=== PATIENT | male | born 1965 | race Caucasian/White ===

== ENCOUNTER 2017-06-11 00:05 | Inpatient (IN) | payer MEDICAID ==
[~2017-06-11] VITALS: Ht 175.3 cm; Wt 86.2 kg
--- NOTE | 2017-06-11 00:29 | NUR ---
Pt unable to recall names and doses of medications at this time.
[2017-06-11] MEDS ORDERED: VANCOMYCIN IV 1,000 MG in IV DEXTROSE 5% 250 ML IV ONE (00:30)
[2017-06-11] MEDS ORDERED: GENTAMICIN SULFATE INJ 80 MG in IV DEXTROSE 5% 100 ML IV ONE (00:30)
[2017-06-11] MEDS ORDERED: CLINDAMYCIN PHOSPHATE IV 600 MG in IV DEXTROSE 5% 100 ML IV ONE (00:30)
[2017-06-11] MEDS ORDERED: IV NORMAL SALINE 1000 ML BAG IV ONE (00:30)
[2017-06-11] MEDS ORDERED: CLINDAMYCIN PHOSPHATE 600 MG/4 ML VIAL ONE ×2 (00:48→02:20)
[2017-06-11 00:53] LABS: CREATININE 1.1 mg/dL (0.6-1.3); POTASSIUM 3.6 mmol/L (3.5-5.1)
[2017-06-11 00:55] LABS: *BILIRUBIN,URIN NEGATIVE (NEGATIVE); *BLOOD, URINE Trace-intact (NEGATIVE); *CLARITY,URINE CLEAR (CLEAR); *COLOR,URINE YELLOW (YELLOW); *KETONES,URINE NEGATIVE (NEGATIVE); *PROTEIN,URINE NEGATIVE (NEGATIVE); *UROBILINOGEN,URINE 0.2 E.U./dl (NORMAL); LEUKOCYTE ESTERASE ,URINE NEGATIVE (NEGATIVE); NITRITE, URINE NEGATIVE (NEGATIVE); UGLUCOSE NEGATIVE (NEGATIVE)
[2017-06-11 00:56] LABS: BASOPHILS % (AUTO) 0.1 % (0.0-2.0); EOSINOPHILS # (AUTO) 0.1 K/uL (0.0-0.7); EOSINOPHILS % (AUTO) 0.5 % (0.0-7.0); HEMATOCRIT 42.6 % (36.7-47.1); HEMOGLOBIN 14.5 g/dL (12.5-16.3); LYMPHOCYTES # (AUTO) 1.1 K/uL (20.0-40.0); LYMPHOCYTES % (AUTO) 7.4 % (20.5-51.5); MEAN CORPUSCULAR HEMOGLOBIN 31.5 uug (23.8-33.4); MEAN CORPUSCULAR HGB CONC 34 g/dL (32.5-36.3); MEAN CORPUSCULAR VOLUME 92.5 fL (73.0-96.2); MONOCYTES # (AUTO) 0.7 K/uL (2.0-10.0); MONOCYTES % (AUTO) 4.6 % (0.0-11.0); NEUTROPHILS # (AUTO) 12.7 K/uL (1.8-8.9); NEUTROPHILS % (AUTO) 87.4 % (38.5-71.5); PLATELET COUNT (AUTO) 221 K/uL (152-348); WHITE BLOOD COUNT (AUTO) 14.5 K/uL (3.6-10.2)
[2017-06-11 00:58] LABS: BILIRUBIN,DIRECT 0.1 mg/dL (0.0-0.2); BILIRUBIN,TOTAL 0.5 mg/dL (0.2-1.0); TOTAL PROTEIN, SERUM 7.1 g/dL (6.4-8.2)
[2017-06-11 01:06] LABS: BACTERIA,URINE NONE SEEN /HPF (NONE SEEN); MUCUS,URINE MODERATE /LPF (0-FEW); SQUAMOUS EPITHELIAL CELL,UR FEW /HPF (NONE SEEN); WBC,URINE 0-3 /HPF (0-3)
[2017-06-11] MEDS ORDERED: VANCOMYCIN IV 200 ML ONE (01:18)
--- NOTE | 2017-06-11 01:24 | NUR ---
PT IN BED. VISITOR AT BEDSIDE. X-RAY BEING COMPLETED AT THIS TIME.
[2017-06-11] MEDS ORDERED: ACETAMINOPHEN 325 MG TABLET PO ONE (01:45)
[2017-06-11] MEDS ORDERED: ACETAMINOPHEN 325 MG TABLET ONE (02:00)
--- NOTE | 2017-06-11 02:23 | NUR ---
Call placed to PSY[facility], Wyatt SCHNEIDER) speaking with [facility].
[2017-06-11] MEDS ORDERED: GENTAMICIN SULFATE 80 MG/2 ML VIAL ONE (02:24)
[2017-06-11] MEDS ORDERED: MORPHINE SULFATE 4 MG/1 ML DISP.SYRIN IV PRN (02:30)
[2017-06-11] MEDS ORDERED: HYDROCODONE/APAP 5-325MG TABLET PO PRN (02:30)
[2017-06-11] MEDS ORDERED: Z GUARD REMEDY PASTE 57 GM TUBE TOP PRN (02:30)
[2017-06-11] MEDS ORDERED: MAGNESIUM HYDROXIDE 30 ML LIQUID UDC PO PRN (02:30)
[2017-06-11] MEDS ORDERED: ONDANSETRON 4 MG/2 ML VIAL IV PRN (02:30)
[2017-06-11] MEDS ORDERED: METRONIDAZOLE 500 MG/NS 100ML 500 MG in PREMIXED 1 EACH IV SCH (03:00)
--- NOTE | 2017-06-11 03:30 | NUR ---
Pt. admitted to TELE, under care of Wyatt Rudd ([facility]). Belongs List completed
--- NOTE | 2017-06-11 03:30 | NUR ---
RECEIVED PT FROM ER [facility]IA [facility]. PT AWAKE, ALERT , [email or web address] ADMITTED TO TELE. BELONGING LIST DONE. ADMISSION PROCESS AND CARE PLAN INITIATED. NEW ADMISSION. SAFETY AND COMFORT PROVIDED. CALL LIGHT WITHIN REACH. WILL CONTINUE TO MONITOR.
[2017-06-11 03:45] VITALS: BP 95/49
[2017-06-11] MEDS: LEVOFLOXACIN 750MG/D5W 750 MG in PREMIXED 1 EACH IV SCH (04:00)
[2017-06-11] MEDS ORDERED: CLINDAMYCIN PHOSPHATE IV 600 MG in IV DEXTROSE 5% 100 ML IV SCH (06:00)
[2017-06-11] MEDS ORDERED: LEVOFLOXACIN 750MG/D5W 150 ML IV ONE (06:23)
[2017-06-11] MEDS ORDERED: METRONIDAZOLE 500 MG/NS 100ML 100 ML IV ONE (06:23)
[2017-06-11 07:29] VITALS: BP 98/40
--- NOTE | 2017-06-11 08:00 | NUR ---
PT IN BED AWAKE, A&O X4. ADMITTED FOR ELEVATED TEMP, REDNESS TO LEFT LOWER INNER LEG; POSSIBLE SEPSIS DUE TO STAPH AERUS, POSSIBLE CELLULITIS. AFEBRILE. PT IN NO ACUTE DISTRESS NOTED. NO SOB. LEADS IN PLACE. DENIES PAIN AT THIS TIME. LEFT LOWER LEG NOTED WITH REDNESS, WARM AND DRY TO TOUCH. SKIN INTACT. WILL MONITOR FOR ADVERSE CHANGES. ON VANCO, FLAGYL, GENTAMICIN, AND CLEOCIN. NO ASE NOTED AT THIS TIME. BLOOD CX AND URINE CX PENDING. CALL LIGHT WITHIN REACH.
[2017-06-11] MEDS: LACTOBACILLUS RHAMNOSUS GG 1 EACH CAPSULE PO SCH ×2 (08:37→21:44)
[2017-06-11] MEDS ORDERED: EFAV1TAB PO (09:06)
[2017-06-11] MEDS ORDERED: LORA10TA7 PO (09:07)
[2017-06-11] MEDS ORDERED: KETO10DR3 EACHEYE (09:07)
[2017-06-11] MEDS: VANCOMYCIN IV 1 G in PREMIXED 0 EACH IV SCH ×2 (10:05→22:23)
[2017-06-11 10:52] LABS: BASOPHILS % (AUTO) 0.1 % (0.0-2.0); EOSINOPHILS # (AUTO) 0.1 K/uL (0.0-0.7); EOSINOPHILS % (AUTO) 0.3 % (0.0-7.0); HEMATOCRIT 37.7 % (36.7-47.1); HEMOGLOBIN 12.9 g/dL (12.5-16.3); LYMPHOCYTES # (AUTO) 0.6 K/uL (20.0-40.0); LYMPHOCYTES % (AUTO) 3.4 % (20.5-51.5); MEAN CORPUSCULAR HEMOGLOBIN 31.2 uug (23.8-33.4); MEAN CORPUSCULAR HGB CONC 34 g/dL (32.5-36.3); MEAN CORPUSCULAR VOLUME 91.4 fL (73.0-96.2); MONOCYTES # (AUTO) 0.7 K/uL (2.0-10.0); MONOCYTES % (AUTO) 4.1 % (0.0-11.0); NEUTROPHILS # (AUTO) 16.6 K/uL (1.8-8.9); NEUTROPHILS % (AUTO) 92.1 % (38.5-71.5); PLATELET COUNT (AUTO) 184 K/uL (152-348); RED BLOOD CELL COUNT(AUTO) 4.13 MIL/uL (4.06-5.63)
[2017-06-11 10:55] LABS: POTASSIUM 4.4 mmol/L (3.5-5.1)
[2017-06-11 11:07] LABS: BILIRUBIN,TOTAL 0.7 mg/dL (0.2-1.0); MAGNESIUM 1.6 mg/dL (1.8-2.4); PHOSPHOROUS 2.5 mg/dL (2.5-4.9); TOTAL PROTEIN, SERUM 5.7 g/dL (6.4-8.2)
[2017-06-11 11:36] VITALS: BP 100/53
--- NOTE | 2017-06-11 12:40 | NUR ---
Clinical pharmacy note-Vancomycin dosing per pharmacy Subjective: To start Vancomycin dosing on this 52 yo male patient for sepsis (MRSA, per ER MD note) Objective: BUN 17 Scr 1.1 WBC 14.5 Temp 99.2 Ht 175.2 cm Wt 86 kg Assessment/Plan: Will continue start vanco 1gm IVPB q12h for predicted vanco trough level of 15 mcg/ml at steady state. 1st dose due today at 1000. Will draw trough by 4th dose(not ordered yet). Will monitor renal function & will adjust the dose if needed. Will monitor daily.
[2017-06-11] MEDS: METRONIDAZOLE 500 MG/NS 100ML 500 MG in PREMIXED 1 EACH IV SCH ×2 (15:01→21:45)
[2017-06-11 15:56] VITALS: BP 95/46
[2017-06-11] MEDS: ACETAMINOPHEN 325 MG TABLET PO PRN (16:54)
--- NOTE | 2017-06-11 18:02 | NUR ---
PT REMAINS STABLE AT THIS TIME. TELEMETRY D/C'D ORDERED. FAMILY AT BEDSIDE. HOME MEDICATIONS PICKED UP BY PHARMACY FOR VERIFICATION. ADMINISTERED TYLENOL 650MG PO NEEDED FOR C/O 3/10 GENERALIZED MILD PAIN. EFFECTIVE POST 40 MINS AT 0/10. ALL I.V. ANTIBIOTICS ADMINISTERED WITH NO ASE NOTED AT THIS TIME. NO ADVERSE CHANGES NOTED TO REDNESS ON LEFT LOWER LEG.
--- NOTE | 2017-06-11 19:30 | NUR ---
Report received. Patient AAO; no neuro deficits. Able to ambulate to BR to void. NAD noted.
[2017-06-11 21:01] VITALS: BP 98/44
[2017-06-12] MEDS: ACETAMINOPHEN 325 MG TABLET PO PRN ×4 (02:19→18:30)
--- NOTE | 2017-06-12 02:19 | NUR ---
Awake. c/o pain to L leg. Encouraged to have leg elevated on pillow. Patient compliant with care. Medicated with Tylenol for L leg pain per patient's request.
[2017-06-12] MEDS: LEVOFLOXACIN 750MG/D5W 750 MG in PREMIXED 1 EACH IV SCH (03:55)
[2017-06-12 04:00] VITALS: BP 107/58
[2017-06-12] MEDS: METRONIDAZOLE 500 MG/NS 100ML 500 MG in PREMIXED 1 EACH IV SCH ×3 (05:33→21:16)
--- NOTE | 2017-06-12 06:00 | NUR ---
Stable all night; NAD noted. L leg redness unchanged.
[2017-06-12 06:43] LABS: BASOPHILS % (AUTO) 0.1 % (0.0-2.0); EOSINOPHILS # (AUTO) 0.4 K/uL (0.0-0.7); EOSINOPHILS % (AUTO) 3.4 % (0.0-7.0); HEMATOCRIT 39.6 % (36.7-47.1); HEMOGLOBIN 13.5 g/dL (12.5-16.3); LYMPHOCYTES # (AUTO) 1.2 K/uL (20.0-40.0); MEAN CORPUSCULAR HEMOGLOBIN 31.5 uug (23.8-33.4); MEAN CORPUSCULAR HGB CONC 34 g/dL (32.5-36.3); MEAN CORPUSCULAR VOLUME 92.4 fL (73.0-96.2); MONOCYTES # (AUTO) 0.6 K/uL (2.0-10.0); MONOCYTES % (AUTO) 5.1 % (0.0-11.0); NEUTROPHILS # (AUTO) 10.1 K/uL (1.8-8.9); NEUTROPHILS % (AUTO) 81.4 % (38.5-71.5); PLATELET COUNT (AUTO) 179 K/uL (152-348); RED BLOOD CELL COUNT(AUTO) 4.28 MIL/uL (4.06-5.63); WHITE BLOOD COUNT (AUTO) 12.4 K/uL (3.6-10.2)
[2017-06-12 06:52] LABS: CREATININE 0.9 mg/dL (0.6-1.3); POTASSIUM 3.9 mmol/L (3.5-5.1)
[2017-06-12 07:12] LABS: THYROID STIMULATING HORMONE 1.463 mIU/mL (0.358-3.740)
[2017-06-12 07:23] VITALS: BP 102/54
--- NOTE | 2017-06-12 08:00 | NUR ---
PT REMAINS STABLE AT THIS TIME. LEFT LOWER LEG STILL NOTED WITH REDNESS. NO ADVERSE CHANGES. RECEIVING IV ABX ORDERED W/ NO ASE NOTED.
[2017-06-12 08:07] LABS: *BASOS 0 % (Not Estab.); *EOS 0 % (Not Estab.); *HCT 35.9 % (37.5-51.0); *HGB 12.5 g/dL (13.0-17.7); *IMMATURE GRANULOCYTES 0 % (Not Estab.); *LYMPHOCYTES 5 % (Not Estab.); *LYMPHOCYTES ABSOLUTE 0.6 x10E3/uL (0.7-3.1); *MCH 31.9 pg (26.6-33.0); *MCHC 34.8 g/dL (31.5-35.7); *MCV 92 fL (79-97); *MONOCYTES 4 % (Not Estab.); *MONOCYTES ABSOLUTE 0.5 x10E3/uL (0.1-0.9); *NEUTROPHILS 91 % (Not Estab.); *NEUTROPHILS ABSOLUTE 10.9 x10E3/uL (1.4-7.0); *PLT 196 x10E3/uL (150-379); *RBC 3.92 x10E6/uL (4.14-5.80); *RDW 14.4 % (12.3-15.4)
[2017-06-12] MEDS: VANCOMYCIN IV 1 G in PREMIXED 0 EACH IV SCH ×2 (09:06→21:51)
[2017-06-12] MEDS: LACTOBACILLUS RHAMNOSUS GG 1 EACH CAPSULE PO SCH ×2 (09:06→20:46)
[2017-06-12] MEDS ORDERED: NEUTRA PHOS PACKET PO ONE (10:15)
[2017-06-12 11:05] VITALS: BP 102/56
--- NOTE | 2017-06-12 13:30 | NUR ---
RECEIVED CALL FROM LAB RE: PRELIMINARY BLOOD CX RESULT (+) FOR GRAM COCCI PAIRS & CHAINS. NOTIFIED DR. CORDOBA W/ NO NEW ORDERS AT THIS TIME. PT ON REI.
--- NOTE | 2017-06-12 14:14 | NUR ---
Clinical pharmacy note-Vancomycin dosing per pharmacy Subjective: To continue Vancomycin dosing on this 52 yo male patient for sepsis (MRSA, per ER MD note) Objective: BUN 8 Scr 0.9 WBC 12.4 Temp 98.7 Ht 175.2 cm Wt 86 kg trough: pending tonight at 2130 Assessment/Plan: Will continue vanco 1gm IVPB q12h for predicted vanco trough level of 15 mcg/ml at steady state. Trough due tonight at 2130 RN endorsed to hold if Tr >20. Will check level in am and adjust regimen as needed. Will monitor renal function & will adjust the dose if needed. Will monitor daily.
[2017-06-12 15:08] LABS: *HELPER T-LYMPH MARKR(CD4)ABSO 95 (359-1519); *HELPER T-LYNPH MARKER CD4)% 15.8 % (30.8-58.5)
[2017-06-12 15:10] VITALS: BP 100/56
--- NOTE | 2017-06-12 17:48 | NUR ---
PT IN NO ACUTE DISTRESS. Addendum: 06/12/17 at 1841 by TIEN LAZARO RN NOTED WITH 99.0 ORAL TEMP. ADMINISTERED TYLENOL 650MG PRN. ENCOURAGED PO FLUID INTAKE. PT DRINKING PEDIALYTE BROUGHT IN BY FAMILY.
--- NOTE | 2017-06-12 19:30 | NUR ---
Report received. Patient AAO, with family visiting. NAD noted. L leg redness area marked, warm to touch. Pedal pulses palpable. No c/o pain at the moment. Addendum: 06/12/17 at 2018 by RODNEY JARVIS RN Amended: Links added.
[2017-06-12 20:50] VITALS: BP 119/54
[2017-06-12] MEDS ORDERED: LORATADINE 10 MG TABLET PO SCH (21:00)
[2017-06-12] MEDS ORDERED: LORATIDINE 10 MG PO SCH (21:00)
[2017-06-12] MEDS ORDERED: ATRIPLA PO SCH (21:00)
[2017-06-13] MEDS: LEVOFLOXACIN 750MG/D5W 750 MG in PREMIXED 1 EACH IV SCH (03:14)
--- NOTE | 2017-06-13 03:56 | NUR ---
aaox4 ambulatory ad april. admitted for sepsis. on antibiotic therapy. tolerated well. no ill effects noted. needs attended. denies any pain nor any discomfort. will monitor patient. voiding without any difficulty.
[2017-06-13 04:57] VITALS: BP 104/61
[2017-06-13] MEDS: METRONIDAZOLE 500 MG/NS 100ML 500 MG in PREMIXED 1 EACH IV SCH ×2 (05:04→13:25)
[2017-06-13 06:53] LABS: BASOPHILS % (AUTO) 0.2 % (0.0-2.0); EOSINOPHILS # (AUTO) 0.6 K/uL (0.0-0.7); EOSINOPHILS % (AUTO) 7.9 % (0.0-7.0); HEMATOCRIT 40.9 % (36.7-47.1); LYMPHOCYTES % (AUTO) 14.2 % (20.5-51.5); MEAN CORPUSCULAR HEMOGLOBIN 31.5 uug (23.8-33.4); MEAN CORPUSCULAR HGB CONC 34 g/dL (32.5-36.3); MEAN CORPUSCULAR VOLUME 92.2 fL (73.0-96.2); MONOCYTES # (AUTO) 0.6 K/uL (2.0-10.0); MONOCYTES % (AUTO) 8.6 % (0.0-11.0); NEUTROPHILS # (AUTO) 4.8 K/uL (1.8-8.9); NEUTROPHILS % (AUTO) 69.1 % (38.5-71.5); PLATELET COUNT (AUTO) 174 K/uL (152-348); RED BLOOD CELL COUNT(AUTO) 4.43 MIL/uL (4.06-5.63)
[2017-06-13] MEDS: LACTOBACILLUS RHAMNOSUS GG 1 EACH CAPSULE PO SCH (08:41)
[2017-06-13] MEDS: ACETAMINOPHEN 325 MG TABLET PO PRN (08:41)
--- NOTE | 2017-06-13 08:56 | NUR ---
pt seen on rounding. vitals assessed and stable. no signs of fever noted. bp wnl. pt able swallow pills whole. pt given tylenol as requested. left leg cellulitis shows improvement. will continue to monitor.
[2017-06-13] MEDS ORDERED: VANCOMYCIN IV 1,500 MG in IV NORMAL SALINE 500 ML IV SCH (10:00)
[2017-06-13 11:19] VITALS: BP 107/62
[2017-06-13] MEDS ORDERED: LACT1CAP57 PO (11:58)
[2017-06-13] MEDS ORDERED: SULF1TAB48 PO (11:58)
--- NOTE | 2017-06-13 14:53 | NUR ---
Clinical pharmacy note-Vancomycin dosing per pharmacy Subjective: To continue Vancomycin dosing on this 52 yo male patient for sepsis (MRSA, per ER MD note) Objective: BUN 8 Scr 0.9 WBC 7.0 Temp 99.4 Ht 175.2 cm Wt 86 kg trough: 4.7 on 06/12 at 2130 Assessment/Plan: Since trough is under therapeutic range, will increase dose to 1500mg IV every 8hrs(first dose today at 1000) and draw trough by 4th dose(ordered for tomorrow at 0930) for expected trough around 15. Will monitor daily.
[2017-06-13 15:50] VITALS: BP 120/64
[2017-06-13 16:04] VITALS: BP 120/64
--- NOTE | 2017-06-13 16:30 | NUR ---
pt ordered to be discharged. pt vitals stable. pt signed discharge summary and belongings list. pt instructed about plan of care after discharge. is instructed about the medications for infection. pt left with belongings. pt picked up by family member. no signs of acute distress. pictures taken and placed in chart. all original copies sent to family. copies in chart. pt is dicharged at 1600
== END 2017-06-13 14:15 | disposition home or self-care (01) | DRG 720 ==
LOC: ER 00:11 → TELE 02:50 → MED 15:58
PROVIDERS: ADMIT Nurse Practitioner Acute Care; ATTEND Internal Medicine
DX: A41.9 Sepsis, unspecified organism (principal); E83.42 Hypomagnesemia; L03.116 Cellulitis of left lower limb; E83.39 Other disorders of phosphorus metabolism; Z88.0 Allergy status to penicillin; Z86.14 Personal history of Methicillin resistant Staphylococcus aureus infection; E66.8 Other obesity; Z68.28 Body mass index [BMI] 28.0-28.9, adult; J30.81 Allergic rhinitis due to animal (cat) (dog) hair and dander; R91.8 Other nonspecific abnormal finding of lung field
CPT/HCPCS: 36415; 70030-TC; 71045; 83605; 83735; 84100; 84443; 85025; 85730; 86361; 87040; 87077; 87086; 93005; A4663; J1580; J1956; J3370; J3490; J7030; J7040; J7050; J7060

== ENCOUNTER 2023-01-27 12:18 | Emergency (ER) | payer MEDICAID ==
[~2023-01-27] VITALS: Ht 175.3 cm; Wt 90.7 kg
[~2023-01-27 12:18] MED LIST: EFAV1TAB PO; KETO10DR3 EACHEYE; LACT1CAP57 PO; LORA10TA7 PO; SULF1TAB48 PO
[2023-01-27 13:49] LABS: CALCIUM 8.8 mg/dL (8.5-10.1); CARBON DIOXIDE 25 mmol/L (21-32); CHLORIDE 100 mmol/L (98-107); CREATININE 1.5 mg/dL (0.6-1.3); GLUCOSE 168 mg/dL (74-106); POTASSIUM 4.1 mmol/L (3.5-5.1); SODIUM SERUM 135 mmol/L (136-145); UREA NITROGEN, BLOOD 11 mg/dL (7-18)
[2023-01-27 13:52] LABS: BASOPHILS % (AUTO) 0.2 % (0.0-2.0); DIFFERENTIAL COMMENT 0; EOSINOPHILS % (AUTO) 0.6 % (0.0-7.0); HEMATOCRIT 43.2 % (36.7-47.1); HEMOGLOBIN 14.2 g/dL (12.5-16.3); LYMPHOCYTES # (AUTO) 1.5 K/uL (0.8-4.8); LYMPHOCYTES % (AUTO) 21.9 % (20.5-51.5); MEAN CORPUSCULAR HEMOGLOBIN 28.2 uug (23.8-33.4); MEAN CORPUSCULAR HGB CONC 33 g/dL (32.5-36.3); MEAN CORPUSCULAR VOLUME 85.9 fL (73.0-96.2); MONOCYTES # (AUTO) 0.6 K/uL (0.1-1.30); MONOCYTES % (AUTO) 8.2 % (0.0-11.0); NEUTROPHILS # (AUTO) 4.9 K/uL (1.8-8.9); NEUTROPHILS % (AUTO) 69.1 % (38.5-71.5); PLATELET COUNT (AUTO) 390 K/uL (152-348); RED BLOOD CELL COUNT(AUTO) 5.04 MIL/uL (4.06-5.63); RED CELL DISTRIBUTION WIDTH 17.7 % (12.1-16.2)
[2023-01-27 13:58] LABS: ALANINE AMINOTRANSFERASE 63 U/L (16-63); ALBUMIN 3.4 g/dL (3.4-5.0); ALKALINE PHOSPHATASE 57 U/L (50-136); ASPARTATE AMINOTRANSFERASE 38 U/L (15-37); BILIRUBIN,DIRECT 0.1 mg/dL (0.0-0.2); BILIRUBIN,TOTAL 0.3 mg/dL (0.2-1.0); TOTAL PROTEIN, SERUM 7.6 g/dL (6.4-8.2)
[2023-01-27 14:22] VITALS: BP 151/93; O2SAT 99
[2023-01-27 14:24] LABS: LACTIC ACID 2.6 mmol/L (0.4-2.0)
[2023-01-27] MEDS ORDERED: CLIN300C3 PO (14:45)
== END 2023-01-27 14:22 | disposition home or self-care (01) ==
LOC: ER 12:32
DX: E87.20 Acidosis, unspecified (principal); M79.632 Pain in left forearm; Z88.0 Allergy status to penicillin; Z79.2 Long term (current) use of antibiotics; Z79.899 Other long term (current) drug therapy
CPT/HCPCS: 36415; 73090; 83605; 84484; 85025; 87040; A4663